=== PATIENT | male | born 1985 | race Caucasian/White ===

== ENCOUNTER 2019-04-25 20:03 | Emergency (ER) | payer OTHER ==
[~2019-04-25] VITALS: Ht 182.9 cm; Wt 115.7 kg
[~2019-04-25 20:03] MED LIST: FLEXERIL PO; NOHOMEMEDICATIONS; ULTRAM50 MG PO
[2019-04-25 20:38] LABS: INFLUENZA A ANTIGEN Negative (Negative); INFLUENZA B ANTIGEN Negative (Negative)
[2019-04-25 20:47] VITALS: BP 146/91
== END 2019-04-25 20:47 | disposition home or self-care (01) ==
LOC: M.ERS 20:03
PROVIDERS: Nurse Practitioner Family
DX: R50.9 Fever, unspecified (principal); M79.18 Myalgia, other site